=== PATIENT | female | born 1955 | race Caucasian/White ===

== ENCOUNTER 2021-09-19 20:29 | Emergency (ER) | payer MEDICARE ==
[~2021-09-19] VITALS: Ht 170.2 cm; Wt 60.5 kg
[2021-09-19 21:54] LABS: CLARITY,URINE HAZY; COLOR,URINE YELLOW; GLUCOSE,URINE >=1000 mg/dL (NEG)
[2021-09-19 21:55] LABS: BACTERIA,URINE MOD /HPF (0-FEW); BILIRUBIN,URINE NEG (NEG); NITRITE,URINE NEG (NEG); SQUAMOUS EPITHELIAL CELL,UR MANY /LPF; UROBILINOGEN,URINE 0.2 mg/dL (0.2 mg/dL)
[2021-09-19 21:56] LABS: YEAST,URINE PRESENT /HPF
[2021-09-19 21:58] VITALS: BP 128/80
--- NOTE | 2021-09-19 22:09 | PHYS DOC ---
Past History Past Surgical History: Tonsillectomy Alcohol Use: None Adult General Chief Complaint Chief Complaint: HYPERGLYCEMIA HPI HPI Patient is a 66-year-old female with [id number] diabetes who presents with a chief complaint of hyperglycemia with a blood sugar at home greater than 200. Denies any recent traumas or travels, illnesses, fevers, chest pain, shor tness of breath, abdominal pain, nausea, vomiting, dysuria, hematuria or blood in the stool. States she is not from here and is visiting. Denies alcohol or drug use. Denies any known ill contacts. Review of Systems Review of Systems Review of system otherwise unremarkable except noted in HPI Allergies Allergies Allergies Coded Allergies Type Severity Reaction Last Updated Verified No Known Drug Allergies 09/19/21 No Physical Exam Physical Exam Constitutional: Well developed, well nourished, no acute distress, non-toxic appearance. [] HENT: Normocephalic, atraumatic, bilateral external ears normal, oropharynx moist, no oral exudates, nose normal. [] Eyes: conjunctiva normal, no discharge. [] Neck: Normal range of motion, no tenderness, supple, no stridor. [] Cardiovascular:Heart rate regular rhythm, no murmur [] Lungs & Thorax: Bilateral breath sounds clear to auscultation [] Abdomen: Bowel sounds normal, soft, no tenderness, no masses, no pulsatile masses. [] Skin: Warm, dry, no erythema, no rash. [] Back: No tenderness, no CVA tenderness. [] Extremities: No tenderness, no cyanosis, no clubbing, ROM intact, no edema. [] Neurologic: Alert and oriented X 3, normal motor function, normal sensory function, no focal deficits noted. [] Psychologic: Affect normal, judgement normal, mood normal. [] Current Patient Data Vital Signs Vital Signs Date Time Temp Pulse Resp B/P (MAP) Pulse Ox O2 Delivery O2 Flow Rate FiO2 09/19/21 21:58 97.9 87 18 128/80 (96) 96 Room Air Lab Results Laboratory Tests Test 09/19/21 21:01 09/19/21 21:06 Urine Collection Type Unknown Urine Color Yellow Urine Clarity Hazy Urine pH 5.0 Urine Specific [place] 1.010 Urine Protein Neg (NEG-TRACE) Urine Glucose (UA) >=1000 mg/dL (NEG) Urine Ketones (Stick) 80 mg/dL (NEG) Urine Blood Mod (NEG) Urine Nitrite Neg (NEG) Urine Bilirubin Neg (NEG) Urine Urobilinogen Dipstick 0.2 mg/dL (0.2 mg/dL) Urine Leukocyte Esterase Small (NEG) Urine RBC 3-5 /HPF (0-2) Urine WBC 11-20 /HPF (0-4) Urine Squamous Epithelial Cells Many /LPF Urine Bacteria Mod /HPF (0-FEW) Urine Yeast Present /HPF Glucose (Fingerstick) 238 mg/dL (70-99) H EKG EKG [] Radiology/Procedures Radiology/Procedures [] Heart Score C/O Chest Pain: No Risk Factors: Risk Factors: DM, Current or recent (<one month) smoker, HTN, HLP, family history of CAD, obesity. Risk Scores: Risk Factors: DM, Current or recent (<one month) smoker, HTN, HLP, family history of CAD, obesity. Course & Med Decision Making Course & Med Decision Making Patient is a 66-year-old female who presents with hyperglycemia at home Vital signs not concerning. Physical exam noted above. Blood sugar 238 here in the ED. Patient asymptomatic. Patient does not use insulin. Discussed all findings with patient. Advised to take medications as prescribed. Discussed diet. Advised to call primary care physician in the morning to discuss ED visit and set up a follow-up for when she gets home. Gave strict return precautions to the ED. Patient grateful, verbalized understanding and agreed with plan of discharge. [] Dragon Disclaimer Dragon Disclaimer This electronic medical record was generated, in whole or in part, using a voice recognition dictation system. Departure Departure: Impression: Primary Impression: Hyperglycemia Disposition: HOME / SELF CARE / HOMELESS Condition: GOOD Referrals: NON,STAFF (PCP) SIMIN TORRES Patient Instructions: Hyperglycemia Additional Instructions: Thank you for coming into the emergency department tonight and allowing us to take care of you. Please read the attached information carefully to go back over some of the things we discussed. Please be sure to take all your medications as prescribed. Please be sure to drink plenty of fluids. Please call your primary care physician in the morning to update on your ED visit and set up a follow-up visit as soon as you can. Please come back with new or concerning symptoms as we discussed. EUGENIO KELLEY MD Sep 19, 2021 22:09
== END 2021-09-19 22:20 | disposition home or self-care (01) ==
LOC: ER 20:29
DX: E11.65 Type 2 diabetes mellitus with hyperglycemia (principal)
CPT/HCPCS: 81001; 82947; 87086; 99282